=== PATIENT | female | born 2005 | race Hispanic/Latino ===

== ENCOUNTER 2024-11-17 10:57 | Emergency (ER) | payer OTHER ==
[~2024-11-17] VITALS: Ht 154.9 cm; Wt 88.9 kg
[2024-11-17] MEDS ORDERED: LOSARTAN POTASS25 MG PO (11:37)
[2024-11-17] MEDS ORDERED: LEVOTHYROXINE50 MCG PO (11:37)
[2024-11-17] MEDS ORDERED: BIRTH CONTROL (11:37)
[2024-11-17] MEDS ORDERED: SERTRALINE HCL50 MG PO (11:37)
[2024-11-17] MEDS: Morphine 4mg INJECTION 4 MG/ML INJ IV ONE ×2 (12:03→13:31)
[2024-11-17] MEDS: SODIUM CHLORIDE 0.9% 1000ML 1,000 ML IV ONE (12:03)
[2024-11-17] MEDS: ONDANSETRON HCL INJ 2MG/ML 2ML 2 MG/ML VIAL IV STA (12:03)
[2024-11-17] MEDS ORDERED: AZITHROMYCIN250 MG PO (12:58)
[2024-11-17] MEDS ORDERED: ONDANSETRON ODT4 MG PO (12:58)
[2024-11-17 13:39] VITALS: PULSE 94; RESP 14; TEMP 98.2; O2SAT 98
== END 2024-11-17 13:39 | disposition home or self-care (01) ==
LOC: FSED 11:01
DX: R11.2 Nausea with vomiting, unspecified (principal); R10.30 Lower abdominal pain, unspecified; I10 Essential (primary) hypertension; E03.9 Hypothyroidism, unspecified; F41.9 Anxiety disorder, unspecified; F32.A Depression, unspecified; E06.3 Autoimmune thyroiditis; Z11.52 Encounter for screening for COVID-19
CPT/HCPCS: 0223U; 74176; 80053; 81003; 81025; 85025; 87400; 96374; 96375; 96376; 99284; J2270; J2405; J7030